=== PATIENT | male | born 1960 | race African-American/Black ===

== ENCOUNTER 2020-10-04 11:11 | Inpatient (IN) | payer MEDICARE, OTHER ==
[2020-10-04 11:47] VITALS: BMI 26.7
[2020-10-04] MEDS ORDERED: MAGNESIUM CITRATE 300 ML BOTTLE PO PRN (12:38)
[2020-10-04] MEDS ORDERED: MENTHOL/PHENOL 1 EACH UD MM PRN (12:38)
[2020-10-04] MEDS ORDERED: ONDANSETRON *ODT* 4 MG TABLET SL PRN (12:38)
[2020-10-04] MEDS ORDERED: BISMUTH SUBSALICYLATE 524 MG/30 ML UD PO PRN (12:38)
[2020-10-04] MEDS ORDERED: MAGNESIUM HYDROX 2400MG/30ML ORAL SUSPENSION 30 ML CUP PO PRN (12:38)
[2020-10-04] MEDS ORDERED: MAG HYDROX/AL HYDROX/SIMETH 30 ML UNIT-DOSE CUP PO PRN (12:38)
[2020-10-04] MEDS ORDERED: METHOCARBAMOL 500 MG TABLET PO PRN (12:38)
[2020-10-04] MEDS ORDERED: chlordiazePOXIDE HCL 25 MG CAPSULE PO PRN (12:38)
[2020-10-04] MEDS ORDERED: NICOTINE POLACRILEX 2 MG GUM BUC PRN (12:38)
[2020-10-04] MEDS ORDERED: ACETAMINOPHEN 325 MG TABLET (FP) PO PRN ×2 (12:38)
[2020-10-04] MEDS ORDERED: INSULIN (NOVOLOG) ASPART 100 UNITS/ML 10ML VIAL ONE ×3 (12:54→18:19)
[2020-10-04] MEDS ORDERED: INSULIN (NOVOLOG) ASPART 100 UNITS/ML 10ML VIAL SQ ONE (13:00)
[2020-10-04 14:32] LABS: ALBUMIN 3.4 g/dl (3.4-5.0); CALCIUM 9.1 mg/dL (8.5-10.1)
[2020-10-04 14:35] LABS: CREATININE 1.4 mg/dL (0.55-1.3)
[2020-10-04 14:36] LABS: HEMATOCRIT 37.9 % (35.4-49); HEMOGLOBIN 12.6 GM/dL (11.7-16.9); MCH 30.3 pg (25.7-33.7); MCHC 33.2 g/dl (32.0-35.9); MEAN CELL VOLUME 91.1 fl (80-96); MEAN PLT VOLUME 9.4 fl (7.5-11.1); PLATELET COUNT 151 K/MM3 (134-434); RBC 4.16 M/mm3 (4.00-5.60); WHITE BLOOD COUNT 4.3 K/mm3 (4.0-10.0)
[2020-10-04 14:37] LABS: BILIRUBIN,TOTAL 0.4 mg/dL (0.2-1); TOT PROT 7.1 g/dl (6.4-8.2)
[2020-10-04] MEDS: IBUPROFEN 400 MG TABLET (FP) PO PRN (15:20)
[2020-10-04] MEDS: hydrOXYzine PAMOATE 25 MG CAPSULE (FP) PO SCH ×3 (15:20→23:06)
[2020-10-04] MEDS: PRENATAL VITAMINS W/ FOLIC ACID TABLET (FP) PO SCH (15:22)
[2020-10-04] MEDS: NICOTINE 21 MG/24 HOURS TOPICAL PATCH TD SCH (15:22)
[2020-10-04] MEDS: metFORMIN HCL 500 MG TABLET (FP) PO SCH (18:22)
[2020-10-04] MEDS: chlordiazePOXIDE HCL 25 MG CAPSULE PO SCH ×2 (18:22→23:05)
[2020-10-04] MEDS: INSULIN SLIDING SCALE (NOVOLOG) 1 VIAL SQ SCH ×2 (18:23→23:06)
[2020-10-04] MEDS ORDERED: MELATONIN 5 MG TABLETS PO SCH (22:00)
[2020-10-04] MEDS: PRAZOSIN HCL 1 MG CAPSULE PO SCH (23:05)
[2020-10-04] MEDS: THIAMINE HCL 100 MG TABLET (FP) PO SCH (23:05)
[2020-10-04] MEDS: INSULIN (LEVEMIR) 100 UNITS/ML UNITS SQ SCH (23:06)
[2020-10-04] MEDS: MELATONIN 5 MG TABLETS PO PRN (23:09)
[2020-10-05] MEDS: hydrOXYzine PAMOATE 25 MG CAPSULE (FP) PO SCH ×5 (07:12→23:04)
[2020-10-05] MEDS: metFORMIN HCL 500 MG TABLET (FP) PO SCH ×2 (07:17→17:30)
[2020-10-05] MEDS: chlordiazePOXIDE HCL 25 MG CAPSULE PO SCH ×4 (07:17→23:03)
[2020-10-05] MEDS: INSULIN SLIDING SCALE (NOVOLOG) 1 VIAL SQ SCH ×4 (08:08→21:57)
[2020-10-05] MEDS: PRENATAL VITAMINS W/ FOLIC ACID TABLET (FP) PO SCH (10:45)
[2020-10-05] MEDS: SERTRALINE HCL 50 MG TABLET (FP) PO SCH (10:46)
[2020-10-05] MEDS: NICOTINE 21 MG/24 HOURS TOPICAL PATCH TD SCH (10:46)
[2020-10-05] MEDS ORDERED: chlordiazePOXIDE HCL 25 MG CAPSULE PO PRN (12:32)
[2020-10-05] MEDS: BICTEGRAV/EMTRICIT/TENOFOV (BIKTARVY) 50-200-25 MG TABLET PO SCH (12:47)
[2020-10-05] MEDS: IBUPROFEN 400 MG TABLET (FP) PO PRN (14:30)
[2020-10-05] MEDS: GABAPENTIN 100 MG CAPSULE PO SCH ×2 (14:32→23:04)
[2020-10-05] MEDS: THIAMINE HCL 100 MG TABLET (FP) PO SCH (23:04)
[2020-10-05] MEDS: PRAZOSIN HCL 1 MG CAPSULE PO SCH (23:04)
[2020-10-05] MEDS: INSULIN (LEVEMIR) 100 UNITS/ML UNITS SQ SCH (23:37)
[2020-10-06] MEDS: metFORMIN HCL 500 MG TABLET (FP) PO SCH ×2 (06:08→17:23)
[2020-10-06] MEDS: GABAPENTIN 100 MG CAPSULE PO SCH ×3 (06:08→22:38)
[2020-10-06] MEDS: hydrOXYzine PAMOATE 25 MG CAPSULE (FP) PO SCH ×5 (06:08→22:38)
[2020-10-06] MEDS: chlordiazePOXIDE HCL 25 MG CAPSULE PO SCH ×4 (06:08→22:38)
[2020-10-06] MEDS ORDERED: INSULIN (NOVOLOG) ASPART 100 UNITS/ML 10ML VIAL ONE (06:21)
[2020-10-06] MEDS: INSULIN SLIDING SCALE (NOVOLOG) 1 VIAL SQ SCH ×4 (06:44→22:38)
[2020-10-06] MEDS: PRENATAL VITAMINS W/ FOLIC ACID TABLET (FP) PO SCH (11:06)
[2020-10-06] MEDS: BICTEGRAV/EMTRICIT/TENOFOV (BIKTARVY) 50-200-25 MG TABLET PO SCH (11:06)
[2020-10-06] MEDS: NICOTINE 21 MG/24 HOURS TOPICAL PATCH TD SCH (11:09)
[2020-10-06] MEDS: SERTRALINE HCL 50 MG TABLET (FP) PO SCH (11:09)
[2020-10-06] MEDS ORDERED: PATIENT'S OWN MEDICATION (NON-FORMULARY) (Dulaglutide [Trulicity] 0.75 MG/0.5 ML Pen.Injct SQ SCH (13:45)
[2020-10-06] MEDS: THIAMINE HCL 100 MG TABLET (FP) PO SCH (22:38)
[2020-10-06] MEDS: PRAZOSIN HCL 1 MG CAPSULE PO SCH (22:39)
[2020-10-06] MEDS: INSULIN (LEVEMIR) 100 UNITS/ML UNITS SQ SCH (22:40)
[2020-10-07] MEDS ORDERED: chlordiazePOXIDE HCL 10 MG CAPSULE PO PRN ×2
[2020-10-07] MEDS ORDERED: chlordiazePOXIDE HCL 10 MG CAPSULE PO SCH (05:00)
[2020-10-07] MEDS: GABAPENTIN 100 MG CAPSULE PO SCH ×3 (05:47→23:12)
[2020-10-07] MEDS: hydrOXYzine PAMOATE 25 MG CAPSULE (FP) PO SCH ×5 (05:47→23:27)
[2020-10-07] MEDS: chlordiazePOXIDE HCL 10 MG CAPSULE PO SCH ×4 (05:48→23:12)
[2020-10-07] MEDS: metFORMIN HCL 500 MG TABLET (FP) PO SCH ×2 (06:41→18:19)
[2020-10-07] MEDS: PRENATAL VITAMINS W/ FOLIC ACID TABLET (FP) PO SCH (11:27)
[2020-10-07] MEDS: SERTRALINE HCL 50 MG TABLET (FP) PO SCH (11:27)
[2020-10-07] MEDS: NICOTINE 21 MG/24 HOURS TOPICAL PATCH TD SCH (11:28)
[2020-10-07] MEDS: BICTEGRAV/EMTRICIT/TENOFOV (BIKTARVY) 50-200-25 MG TABLET PO SCH (11:28)
[2020-10-07] MEDS: INSULIN SLIDING SCALE (NOVOLOG) 1 VIAL SQ SCH ×3 (11:35→23:27)
[2020-10-07] MEDS: THIAMINE HCL 100 MG TABLET (FP) PO SCH (23:12)
[2020-10-07] MEDS: INSULIN (LEVEMIR) 100 UNITS/ML UNITS SQ SCH (23:25)
[2020-10-07] MEDS: PRAZOSIN HCL 1 MG CAPSULE PO SCH (23:26)
[2020-10-08] MEDS ORDERED: chlordiazePOXIDE HCL 10 MG CAPSULE PO SCH (05:00)
[2020-10-08] MEDS: GABAPENTIN 100 MG CAPSULE PO SCH ×4 (05:54→23:01)
[2020-10-08] MEDS: hydrOXYzine PAMOATE 25 MG CAPSULE (FP) PO SCH ×5 (05:54→23:00)
[2020-10-08] MEDS: chlordiazePOXIDE HCL 10 MG CAPSULE PO SCH ×2 (05:54→18:34)
[2020-10-08] MEDS: INSULIN SLIDING SCALE (NOVOLOG) 1 VIAL SQ SCH ×4 (06:31→23:50)
[2020-10-08] MEDS: metFORMIN HCL 500 MG TABLET (FP) PO SCH ×2 (06:31→16:34)
[2020-10-08] MEDS: BICTEGRAV/EMTRICIT/TENOFOV (BIKTARVY) 50-200-25 MG TABLET PO SCH (08:21)
[2020-10-08] MEDS: SERTRALINE HCL 50 MG TABLET (FP) PO SCH (10:56)
[2020-10-08] MEDS: PRENATAL VITAMINS W/ FOLIC ACID TABLET (FP) PO SCH (10:56)
[2020-10-08] MEDS: NICOTINE 21 MG/24 HOURS TOPICAL PATCH TD SCH (10:57)
[2020-10-08] MEDS: INSULIN (LEVEMIR) 100 UNITS/ML UNITS SQ SCH (22:59)
[2020-10-08] MEDS: THIAMINE HCL 100 MG TABLET (FP) PO SCH (23:00)
[2020-10-08] MEDS: MELATONIN 5 MG TABLETS PO PRN (23:01)
[2020-10-08] MEDS: PRAZOSIN HCL 1 MG CAPSULE PO SCH (23:50)
[2020-10-09] MEDS ORDERED: chlordiazePOXIDE HCL 10 MG CAPSULE PO ONE ×2 (05:00)
[2020-10-09] MEDS: hydrOXYzine PAMOATE 25 MG CAPSULE (FP) PO SCH ×2 (05:54→10:25)
[2020-10-09] MEDS: GABAPENTIN 100 MG CAPSULE PO SCH (05:54)
[2020-10-09] MEDS: metFORMIN HCL 500 MG TABLET (FP) PO SCH (06:01)
[2020-10-09] MEDS: INSULIN SLIDING SCALE (NOVOLOG) 1 VIAL SQ SCH ×2 (06:12→11:53)
[2020-10-09 08:07] VITALS: TEMP 97.1
[2020-10-09] MEDS: NICOTINE 21 MG/24 HOURS TOPICAL PATCH TD SCH (10:25)
[2020-10-09] MEDS: SERTRALINE HCL 50 MG TABLET (FP) PO SCH (10:25)
[2020-10-09] MEDS: PRENATAL VITAMINS W/ FOLIC ACID TABLET (FP) PO SCH (10:25)
[2020-10-09] MEDS: BICTEGRAV/EMTRICIT/TENOFOV (BIKTARVY) 50-200-25 MG TABLET PO SCH (10:25)
[2020-10-09 10:42] VITALS: BP 127/73; PULSE 79
== END 2020-10-09 12:40 | disposition other institution (70) | DRG 897 ==
LOC: YASAS 11:11 → Y3N 12:57 → Y6N 13:30
PROVIDERS: ADMIT Allergy & Immunology; ATTEND Allergy & Immunology
PROC: HZ2ZZZZ Detoxification Services for Substance Abuse Treatment (ICD-10-PCS; principal; 2020-10-04)
DX: F10.230 Alcohol dependence with withdrawal, uncomplicated (principal); F14.20 Cocaine dependence, uncomplicated; F19.282 Other psychoactive substance dependence with psychoactive substance-induced sleep disorder; F12.20 Cannabis dependence, uncomplicated; F17.210 Nicotine dependence, cigarettes, uncomplicated; F32.9 Major depressive disorder, single episode, unspecified; F43.10 Post-traumatic stress disorder, unspecified; F19.24 Other psychoactive substance dependence with psychoactive substance-induced mood disorder; Z21 Asymptomatic human immunodeficiency virus [HIV] infection status; E11.42 Type 2 diabetes mellitus with diabetic polyneuropathy; Z79.4 Long term (current) use of insulin; Z96.641 Presence of right artificial hip joint; Z86.19 Personal history of other infectious and parasitic diseases; Z91.410 Personal history of adult physical and sexual abuse; Z91.013 Allergy to seafood
CPT/HCPCS: 36415; 80053; 82962; 85027; 86593; 86780; C9803; U0003

== ENCOUNTER 2020-10-09 12:51 | Inpatient (IN) | payer MEDICARE, OTHER ==
[2020-10-09] MEDS ORDERED: hydrOXYzine PAMOATE 25 MG CAPSULE (FP) PO PRN (13:48)
[2020-10-09] MEDS ORDERED: ACETAMINOPHEN 325 MG TABLET (FP) PO PRN (13:48)
[2020-10-09] MEDS ORDERED: MAG HYDROX/AL HYDROX/SIMETH 30 ML UNIT-DOSE CUP PO PRN (13:48)
[2020-10-09] MEDS ORDERED: MAGNESIUM HYDROX 2400MG/30ML ORAL SUSPENSION 30 ML CUP PO PRN (13:48)
[2020-10-09] MEDS ORDERED: LOPERAMIDE HCL 2 MG CAPSULE PO PRN (13:48)
[2020-10-09] MEDS ORDERED: P-EPHED 60MG/TRIPROLIDI 2.5MG TABLET PO PRN (13:48)
[2020-10-09] MEDS ORDERED: MENTHOL/PHENOL 1 EACH UD MM PRN (13:48)
[2020-10-09] MEDS ORDERED: IBUPROFEN 400 MG TABLET (FP) PO PRN (13:48)
[2020-10-09] MEDS ORDERED: guaiFENesin 200 MG/10 ML 10 ML UNIT-DOSE CUPS PO PRN (13:48)
[2020-10-09] MEDS ORDERED: MAGNESIUM CITRATE 300 ML BOTTLE PO PRN (13:48)
[2020-10-09] MEDS ORDERED: NICOTINE POLACRILEX 2 MG GUM BUC PRN (13:48)
[2020-10-09] MEDS ORDERED: PATIENT'S OWN MEDICATION (NON-FORMULARY) (Dulaglutide [Trulicity] 0.75 MG/0.5 ML Pen.Injct SQ SCH (14:00)
[2020-10-09] MEDS: GABAPENTIN 100 MG CAPSULE PO SCH ×2 (14:39→21:06)
[2020-10-09] MEDS: metFORMIN HCL 500 MG TABLET (FP) PO SCH (17:17)
[2020-10-09] MEDS: INSULIN SLIDING SCALE (NOVOLOG) 1 VIAL SQ SCH ×2 (17:18→21:06)
[2020-10-09] MEDS ORDERED: AMMONIUM LACTATE 12% LOTION 225 GM BOTTLE TP PRN (18:45)
[2020-10-09] MEDS: THIAMINE HCL 100 MG TABLET (FP) PO SCH (21:05)
[2020-10-09] MEDS: INSULIN (LEVEMIR) 100 UNITS/ML UNITS SQ SCH (21:05)
[2020-10-09] MEDS: MELATONIN 5 MG TABLETS PO SCH (21:05)
[2020-10-10] MEDS: GABAPENTIN 100 MG CAPSULE PO SCH ×3 (05:54→21:25)
[2020-10-10] MEDS: INSULIN SLIDING SCALE (NOVOLOG) 1 VIAL SQ SCH ×4 (06:10→21:26)
[2020-10-10] MEDS: metFORMIN HCL 500 MG TABLET (FP) PO SCH ×2 (06:10→16:22)
[2020-10-10] MEDS: PRENATAL VITAMINS W/ FOLIC ACID TABLET (FP) PO SCH (10:05)
[2020-10-10] MEDS: NICOTINE 21 MG/24 HOURS TOPICAL PATCH TD SCH (10:05)
[2020-10-10] MEDS: BICTEGRAV/EMTRICIT/TENOFOV (BIKTARVY) 50-200-25 MG TABLET PO SCH (10:05)
[2020-10-10] MEDS: THIAMINE HCL 100 MG TABLET (FP) PO SCH (21:25)
[2020-10-10] MEDS: MELATONIN 5 MG TABLETS PO SCH (21:25)
[2020-10-10] MEDS: INSULIN (LEVEMIR) 100 UNITS/ML UNITS SQ SCH (21:26)
[2020-10-11] MEDS: GABAPENTIN 100 MG CAPSULE PO SCH ×3 (06:53→21:16)
[2020-10-11] MEDS: metFORMIN HCL 500 MG TABLET (FP) PO SCH ×2 (06:53→17:20)
[2020-10-11] MEDS: INSULIN SLIDING SCALE (NOVOLOG) 1 VIAL SQ SCH ×4 (06:53→21:17)
[2020-10-11] MEDS: PRENATAL VITAMINS W/ FOLIC ACID TABLET (FP) PO SCH (10:00)
[2020-10-11] MEDS: NICOTINE 21 MG/24 HOURS TOPICAL PATCH TD SCH (10:00)
[2020-10-11] MEDS: BICTEGRAV/EMTRICIT/TENOFOV (BIKTARVY) 50-200-25 MG TABLET PO SCH (10:00)
[2020-10-11] MEDS: THIAMINE HCL 100 MG TABLET (FP) PO SCH (21:16)
[2020-10-11] MEDS: MELATONIN 5 MG TABLETS PO SCH (21:16)
[2020-10-11] MEDS: INSULIN (LEVEMIR) 100 UNITS/ML UNITS SQ SCH (21:17)
[2020-10-12] MEDS: metFORMIN HCL 500 MG TABLET (FP) PO SCH ×2 (06:08→17:18)
[2020-10-12] MEDS: GABAPENTIN 100 MG CAPSULE PO SCH ×3 (06:08→21:23)
[2020-10-12] MEDS: INSULIN SLIDING SCALE (NOVOLOG) 1 VIAL SQ SCH ×4 (06:10→21:23)
[2020-10-12] MEDS: PRENATAL VITAMINS W/ FOLIC ACID TABLET (FP) PO SCH (09:35)
[2020-10-12] MEDS ORDERED: PT OWN MED DRAWER 7, Y5N ONE (09:36)
[2020-10-12] MEDS: BICTEGRAV/EMTRICIT/TENOFOV (BIKTARVY) 50-200-25 MG TABLET PO SCH (09:37)
[2020-10-12] MEDS: NICOTINE 21 MG/24 HOURS TOPICAL PATCH TD SCH (09:37)
[2020-10-12] MEDS: BACITRACIN 0.9 GM PACKET TP SCH ×2 (11:04→21:23)
[2020-10-12] MEDS ORDERED: MASKS NR ONE ×2 (15:11→17:19)
[2020-10-12] MEDS: THIAMINE HCL 100 MG TABLET (FP) PO SCH (21:22)
[2020-10-12] MEDS: MELATONIN 5 MG TABLETS PO SCH (21:22)
[2020-10-12] MEDS: INSULIN (LEVEMIR) 100 UNITS/ML UNITS SQ SCH (21:25)
[2020-10-13] MEDS: GABAPENTIN 100 MG CAPSULE PO SCH ×3 (06:25→21:07)
[2020-10-13] MEDS: INSULIN SLIDING SCALE (NOVOLOG) 1 VIAL SQ SCH ×4 (06:27→21:09)
[2020-10-13] MEDS: metFORMIN HCL 500 MG TABLET (FP) PO SCH ×2 (06:27→17:11)
[2020-10-13] MEDS: PRENATAL VITAMINS W/ FOLIC ACID TABLET (FP) PO SCH (09:58)
[2020-10-13] MEDS: BACITRACIN 0.9 GM PACKET TP SCH ×2 (09:58→21:09)
[2020-10-13] MEDS: BICTEGRAV/EMTRICIT/TENOFOV (BIKTARVY) 50-200-25 MG TABLET PO SCH (09:59)
[2020-10-13] MEDS: NICOTINE 21 MG/24 HOURS TOPICAL PATCH TD SCH (10:00)
[2020-10-13] MEDS ORDERED: PATIENT'S OWN MEDICATION (NON-FORMULARY) (Dulaglutide [Trulicity] 0.75 MG) SQ SCH (10:00)
[2020-10-13] MEDS ORDERED: MASKS NR ONE (20:33)
[2020-10-13] MEDS: MELATONIN 5 MG TABLETS PO SCH (21:06)
[2020-10-13] MEDS: THIAMINE HCL 100 MG TABLET (FP) PO SCH (21:06)
[2020-10-13] MEDS: INSULIN (LEVEMIR) 100 UNITS/ML UNITS SQ SCH (21:09)
[2020-10-14] MEDS: GABAPENTIN 100 MG CAPSULE PO SCH ×3 (06:26→21:40)
[2020-10-14] MEDS: INSULIN SLIDING SCALE (NOVOLOG) 1 VIAL SQ SCH ×4 (06:26→21:40)
[2020-10-14] MEDS: metFORMIN HCL 500 MG TABLET (FP) PO SCH ×2 (07:53→17:09)
[2020-10-14] MEDS: BACITRACIN 0.9 GM PACKET TP SCH ×2 (09:57→21:39)
[2020-10-14] MEDS: PRENATAL VITAMINS W/ FOLIC ACID TABLET (FP) PO SCH (09:57)
[2020-10-14] MEDS: NICOTINE 21 MG/24 HOURS TOPICAL PATCH TD SCH (09:57)
[2020-10-14] MEDS: BICTEGRAV/EMTRICIT/TENOFOV (BIKTARVY) 50-200-25 MG TABLET PO SCH (09:57)
[2020-10-14] MEDS: INSULIN (LEVEMIR) 100 UNITS/ML UNITS SQ SCH (21:40)
[2020-10-14] MEDS: THIAMINE HCL 100 MG TABLET (FP) PO SCH (21:40)
[2020-10-14] MEDS: MELATONIN 5 MG TABLETS PO SCH (21:40)
[2020-10-15] MEDS ORDERED: MASKS NR ONE ×3 (05:51→20:07)
[2020-10-15] MEDS: GABAPENTIN 100 MG CAPSULE PO SCH ×3 (06:10→21:11)
[2020-10-15] MEDS: metFORMIN HCL 500 MG TABLET (FP) PO SCH ×2 (06:10→16:32)
[2020-10-15] MEDS: INSULIN SLIDING SCALE (NOVOLOG) 1 VIAL SQ SCH ×4 (06:10→21:14)
[2020-10-15] MEDS: BACITRACIN 0.9 GM PACKET TP SCH ×2 (10:34→21:13)
[2020-10-15] MEDS: BICTEGRAV/EMTRICIT/TENOFOV (BIKTARVY) 50-200-25 MG TABLET PO SCH (10:34)
[2020-10-15] MEDS: PRENATAL VITAMINS W/ FOLIC ACID TABLET (FP) PO SCH (10:34)
[2020-10-15] MEDS: NICOTINE 21 MG/24 HOURS TOPICAL PATCH TD SCH (10:36)
[2020-10-15] MEDS: MELATONIN 5 MG TABLETS PO SCH (21:11)
[2020-10-15] MEDS: THIAMINE HCL 100 MG TABLET (FP) PO SCH (21:11)
[2020-10-15] MEDS: INSULIN (LEVEMIR) 100 UNITS/ML UNITS SQ SCH (21:13)
[2020-10-16] MEDS ORDERED: MASKS NR ONE (06:00)
[2020-10-16] MEDS ORDERED: TRIMETHOBENZAMIDE HCL 200MG/2ML INJ IM ONE (06:21)
[2020-10-16] MEDS: INSULIN SLIDING SCALE (NOVOLOG) 1 VIAL SQ SCH ×3 (06:43→16:25)
[2020-10-16] MEDS: GABAPENTIN 100 MG CAPSULE PO SCH ×2 (07:45→14:36)
[2020-10-16] MEDS: metFORMIN HCL 500 MG TABLET (FP) PO SCH ×2 (08:13→16:24)
[2020-10-16] MEDS: PRENATAL VITAMINS W/ FOLIC ACID TABLET (FP) PO SCH (09:56)
[2020-10-16] MEDS: NICOTINE 21 MG/24 HOURS TOPICAL PATCH TD SCH (09:56)
[2020-10-16] MEDS: BACITRACIN 0.9 GM PACKET TP SCH (09:56)
[2020-10-16] MEDS: BICTEGRAV/EMTRICIT/TENOFOV (BIKTARVY) 50-200-25 MG TABLET PO SCH (09:56)
[2020-10-16 19:59] VITALS: BP 120/74; PULSE 99
[2020-10-16 20:27] VITALS: TEMP 97.7
[2020-10-17] MEDS: MELATONIN 5 MG TABLETS PO SCH (00:02)
[2020-10-17] MEDS: INSULIN (LEVEMIR) 100 UNITS/ML UNITS SQ SCH (00:02)
[2020-10-17] MEDS: GABAPENTIN 100 MG CAPSULE PO SCH (00:02)
[2020-10-17] MEDS: BACITRACIN 0.9 GM PACKET TP SCH (00:02)
[2020-10-17] MEDS: THIAMINE HCL 100 MG TABLET (FP) PO SCH (00:03)
[2020-10-17] MEDS: INSULIN SLIDING SCALE (NOVOLOG) 1 VIAL SQ SCH (00:03)
== END 2020-10-17 01:25 | disposition left against medical advice (07) | DRG 894 ==
LOC: YASAS 12:51 → Y3W 12:52
PROVIDERS: ADMIT Allergy & Immunology; ATTEND Allergy & Immunology
PROC: HZ42ZZZ Group Counseling for Substance Abuse Treatment, Cognitive-Behavioral (ICD-10-PCS; principal; 2020-10-09)
DX: F10.20 Alcohol dependence, uncomplicated (principal); F14.20 Cocaine dependence, uncomplicated; F12.20 Cannabis dependence, uncomplicated; F17.210 Nicotine dependence, cigarettes, uncomplicated; F41.8 Other specified anxiety disorders; F32.9 Major depressive disorder, single episode, unspecified; Z21 Asymptomatic human immunodeficiency virus [HIV] infection status; E11.42 Type 2 diabetes mellitus with diabetic polyneuropathy; Z79.4 Long term (current) use of insulin; R10.30 Lower abdominal pain, unspecified; R11.2 Nausea with vomiting, unspecified; R19.7 Diarrhea, unspecified; Z91.013 Allergy to seafood; Z91.5 Personal history of self-harm
CPT/HCPCS: 82962; C9803; U0003

== ENCOUNTER 2020-10-16 20:41 | Emergency (ER) | payer MEDICARE, OTHER ==
[2020-10-16 20:53] VITALS: BP 126/76; PULSE 98; TEMP 98.6; BMI 27.0
[2020-10-16] MEDS ORDERED: SODIUM CHLORIDE 0.9% 500 ML INFUS.BAG IV ONE ×2 (21:31→23:05)
[2020-10-16] MEDS ORDERED: ONDANSETRON 4 MG/2 ML VIAL IVPUSH ONE (21:31)
[2020-10-16] MEDS ORDERED: ACETAMINOPHEN 1000 MG/100 ML VIAL (NON FORMULARY) IVPB ONE (21:31)
[2020-10-16] MEDS ORDERED: FAMOTIDINE 20 MG/50 ML IVPB 20 MG/50 ML MG IVPB ONE ×2 (21:33→22:24)
[2020-10-16] MEDS ORDERED: ACETAMINOPHEN INJECTION 100 ML IVPB ONE (22:24)
[2020-10-16] MEDS ORDERED: ONDANSETRON 4 MG/2 ML VIAL ONE (22:24)
[2020-10-16 22:29] LABS: BASO % 0.6 % (0-2.0); EOS % 2.4 % (0-4.5); HEMATOCRIT 38.5 % (35.4-49); HEMOGLOBIN 12.8 GM/dL (11.7-16.9); LYMPH % 34.5 % (8-40); MCH 29.9 pg (25.7-33.7); MCHC 33.3 g/dl (32.0-35.9); MEAN CELL VOLUME 89.8 fl (80-96); MEAN PLT VOLUME 9.6 fl (7.5-11.1); MONO % 6.7 % (3.8-10.2); NEUT % 55.8 % (42.8-82.8); PLATELET COUNT 106 K/MM3 (134-434); RBC 4.28 M/mm3 (4.00-5.60); RDW 14.8 % (11.9-15.9); WHITE BLOOD COUNT 6.7 K/mm3 (4.0-10.0)
[2020-10-16 22:40] LABS: INR 1.02 (0.83-1.09); PROTHROMBIN TIME (PATIENT) 12.3 SEC (9.7-13.0)
[2020-10-16 22:48] LABS: POTASSIUM 4.3 mmol/L (3.5-5.1)
[2020-10-16 22:49] LABS: CALCIUM 9.3 mg/dL (8.5-10.1)
[2020-10-16 22:50] LABS: ALBUMIN 3.7 g/dl (3.4-5.0); BLOOD UREA NITROGEN 16.2 mg/dL (7-18)
[2020-10-16 22:51] LABS: EPI CELLS 13 /uL (0-25.1); HYALINE CASTS 1 /uL (0-3.1); URINE APPEARANCE CLEAR; URINE BACTERIA 156 /uL (0-1359); URINE BILIRUBIN NEGATIVE (NEGATIVE); URINE COLOR YELLOW; URINE GLUCOSE (UA) NEGATIVE (NEGATIVE); URINE KETONE NEGATIVE (NEGATIVE); URINE LEUK ESTERASE TRACE (NEGATIVE); URINE NITRITE NEGATIVE (NEGATIVE); URINE PROTEIN TRACE (NEGATIVE); URINE RBC 25 /uL (0-23.9); URINE WBC 39 /uL (0-25.8)
[2020-10-16 22:53] LABS: CREATININE 1.5 mg/dL (0.55-1.3)
[2020-10-16 22:55] LABS: BILIRUBIN,TOTAL 0.3 mg/dL (0.2-1); TOT PROT 7.3 g/dl (6.4-8.2)
== END 2020-10-17 01:27 | disposition left against medical advice (07) ==
LOC: JER 20:41
PROC: 3E0333Z Introduction of Anti-inflammatory into Peripheral Vein, Percutaneous Approach (ICD-10-PCS; principal; 2020-10-16)
PROC: 3E033GC Introduction of Other Therapeutic Substance into Peripheral Vein, Percutaneous Approach (ICD-10-PCS; 2020-10-16)
PROC: 3E033GC Introduction of Other Therapeutic Substance into Peripheral Vein, Percutaneous Approach (ICD-10-PCS; 2020-10-16)
DX: R11.2 Nausea with vomiting, unspecified (principal); R19.7 Diarrhea, unspecified
CPT/HCPCS: 36415; 74177-TC; 80053; 81003; 83605; 83690; 85025; 85610; 93005; 93010; 96374; 96375; 99285-25; J0131

== ENCOUNTER 2024-07-21 15:16 | Inpatient (IN) | payer OTHER ==
[2024-07-21 15:53] VITALS: BMI 22.1
[2024-07-21] MEDS ORDERED: LOPERAMIDE HCL 2 MG CAPSULE PO PRN (16:47)
[2024-07-21] MEDS ORDERED: BISMUTH SUBSALICYLATE 524 MG/30 ML PO PRN (16:47)
[2024-07-21] MEDS ORDERED: guaiFENesin 600 MG TABLET.ER (FP) PO PRN (16:47)
[2024-07-21] MEDS ORDERED: NALOXONE (NARCAN) HCL 4 MG/0.1 ML SPRAY NS PRN (16:47)
[2024-07-21] MEDS ORDERED: ACETAMINOPHEN 325 MG TABLET (FP) PO PRN (16:47)
[2024-07-21] MEDS ORDERED: DICYCLOMINE HCL 10 MG CAPSULE PO PRN (16:47)
[2024-07-21] MEDS ORDERED: POLYETHYLENE GLYCOL (HEALTHYLAX) 3350 17 GM PACKET PO PRN (16:47)
[2024-07-21] MEDS ORDERED: ONDANSETRON *ODT* 4 MG TABLET SL PRN (16:47)
[2024-07-21] MEDS ORDERED: IBUPROFEN 400 MG TABLET (FP) PO PRN (16:47)
[2024-07-21] MEDS ORDERED: BENZONATATE 200 MG CAPSULE PO PRN (16:47)
[2024-07-21] MEDS ORDERED: BENZOCAINE/MENTHOL (CHLORASEPTIC ) LOZENGE MM PRN (16:47)
[2024-07-21] MEDS ORDERED: MAGNESIUM HYDROX 2400MG/30ML ORAL SUSPENSION 30 ML CUP PO PRN (16:47)
[2024-07-21] MEDS ORDERED: NICOTINE POLACRILEX 2 MG GUM BUC PRN (16:47)
[2024-07-21] MEDS ORDERED: MAG HYDROX/AL HYDROX/SIMETH 30 ML UNIT-DOSE CUP PO PRN (16:47)
[2024-07-21] MEDS ORDERED: BICTEGRAV/EMTRICIT/TENOFOV (BIKTARVY) 50-200-25 MG TABLET PO SCH ×2 (17:00→18:30)
[2024-07-21] MEDS: METHOCARBAMOL 500 MG TABLET PO PRN (20:05)
[2024-07-21] MEDS: IBUPROFEN 600 MG TABLET (FP) PO PRN (20:05)
[2024-07-21] MEDS: hydrOXYzine PAMOATE 25 MG CAPSULE (FP) PO PRN (20:05)
[2024-07-21] MEDS: BICTEGRAV/EMTRICIT/TENOFOV (BIKTARVY) 50-200-25 MG TABLET PO SCH (20:31)
[2024-07-21] MEDS ORDERED: metFORMIN HCL 500 MG TABLET (FP) PO SCH (22:00)
[2024-07-21] MEDS: THIAMINE 100 MG TABLET PO SCH (22:23)
[2024-07-21] MEDS: GABAPENTIN 400 MG CAPSULE PO SCH (22:23)
[2024-07-21] MEDS: MELATONIN 5 MG TABLETS PO SCH (22:23)
[2024-07-21] MEDS: BUPRENORPHINE/NALOXONE 4 MG/1 MG FILM PACKET SL SCH (22:31)
[2024-07-21] MEDS: INSULIN (LEVEMIR) 100 UNITS/ML UNITS SQ SCH (22:32)
[2024-07-22] MEDS: metFORMIN HCL 500 MG TABLET (FP) PO SCH (06:07)
[2024-07-22] MEDS: INSULIN ASPART SLIDING SCALE (NOVOLOG) 1 VIAL SQ SCH (06:27)
[2024-07-22] MEDS: PRENATAL VITAMINS W/ FOLIC ACID TABLET (FP) PO SCH (10:38)
[2024-07-22 11:27] LABS: CHLORIDE 112 mmol/L (98-107); POTASSIUM 4.2 mmol/L (3.5-5.1); SODIUM 143 mmol/L (136-145)
[2024-07-22 11:30] LABS: HEMATOCRIT 28.1 % (35.4-49); HEMOGLOBIN 9.3 GM/dL (11.7-16.9); MCH 27.3 pg (25.7-33.7); MCHC 32.9 g/dl (32.0-35.9); MEAN PLT VOLUME 8.5 fl (7.5-11.1); PLATELET COUNT 243 10^3/uL (134-434); RBC 3.39 M/mm3 (4.00-5.60); RDW 17.9 % (11.9-15.9)
[2024-07-22 11:32] LABS: ALBUMIN 2.1 g/dl (3.4-5.0)
[2024-07-22 11:33] LABS: ANION GAP 4 mmol/L (4-13); BLOOD UREA NITROGEN 16.2 mg/dL (7-18); CALCIUM 8.6 mg/dL (8.5-10.1); CO2 27 mmol/L (21-32); GLUCOSE,RANDOM 153 mg/dL (74-106)
[2024-07-22 11:35] LABS: SGPT/ALT 11 U/L (13-61)
[2024-07-22 11:37] LABS: BILIRUBIN,TOTAL 0.3 mg/dL (0.2-1); CREATININE 1.6 mg/dL (0.55-1.3); SGOT/AST 11 U/L (15-37); TOT PROT 5.8 g/dl (6.4-8.2)
[2024-07-22 11:38] LABS: ALK PHOS 75 U/L (45-117)
[2024-07-23] MEDS: NALOXONE (NYS OPIOID OVERDOSE PROGRAM) 4 MG/0.1 ML SPRAY NS SCH (12:01)
[2024-07-23 13:15] VITALS: BP 137/65; PULSE 86; RESP 18; TEMP 98
== END 2024-07-23 15:27 | disposition other institution (70) | DRG 897 ==
LOC: YASAS 15:16 → Y3N 19:25
PROVIDERS: ADMIT Allergy & Immunology; ATTEND Allergy & Immunology
PROC: HZ2ZZZZ Detoxification Services for Substance Abuse Treatment (ICD-10-PCS; principal; 2024-07-21)
DX: F11.20 Opioid dependence, uncomplicated (principal); F10.20 Alcohol dependence, uncomplicated; F14.10 Cocaine abuse, uncomplicated; F12.20 Cannabis dependence, uncomplicated; F17.210 Nicotine dependence, cigarettes, uncomplicated; F19.24 Other psychoactive substance dependence with psychoactive substance-induced mood disorder; F43.10 Post-traumatic stress disorder, unspecified; F32.A Depression, unspecified; Z21 Asymptomatic human immunodeficiency virus [HIV] infection status; E11.9 Type 2 diabetes mellitus without complications; Z79.4 Long term (current) use of insulin; R26.89 Other abnormalities of gait and mobility; Z99.89 Dependence on other enabling machines and devices; Z86.73 Personal history of transient ischemic attack (TIA), and cerebral infarction without residual deficits; Z86.19 Personal history of other infectious and parasitic diseases; Z79.899 Other long term (current) drug therapy
CPT/HCPCS: 36415; 71046-TC-FY; 80053; 80305; 80307; 82962; 83036; 85027; 86593; 86780; 87811; 93005; 93010

== ENCOUNTER 2024-07-23 15:18 | Inpatient (IN) | payer OTHER ==
[2024-07-23] MEDS ORDERED: guaiFENesin 600 MG TABLET.ER (FP) PO PRN (18:21)
[2024-07-23] MEDS ORDERED: ACETAMINOPHEN 325 MG TABLET (FP) PO PRN (18:21)
[2024-07-23] MEDS ORDERED: BENZONATATE 200 MG CAPSULE PO PRN (18:21)
[2024-07-23] MEDS ORDERED: MAGNESIUM HYDROX 2400MG/30ML ORAL SUSPENSION 30 ML CUP PO PRN (18:21)
[2024-07-23] MEDS ORDERED: IBUPROFEN 600 MG TABLET (FP) PO PRN (18:21)
[2024-07-23] MEDS ORDERED: LOPERAMIDE HCL 2 MG CAPSULE PO PRN (18:21)
[2024-07-23] MEDS ORDERED: NALOXONE HCL 0.4 MG/ML VIAL IVPUSH PRN (18:21)
[2024-07-23] MEDS ORDERED: IBUPROFEN 400 MG TABLET (FP) PO PRN (18:21)
[2024-07-23] MEDS ORDERED: METHOCARBAMOL 500 MG TABLET PO PRN (18:21)
[2024-07-23] MEDS ORDERED: NALOXONE (NARCAN) HCL 4 MG/0.1 ML SPRAY NS PRN (18:21)
[2024-07-23] MEDS ORDERED: POLYETHYLENE GLYCOL (HEALTHYLAX) 3350 17 GM PACKET PO PRN (18:21)
[2024-07-23] MEDS: INSULIN (LEVEMIR) 100 UNITS/ML UNITS SQ SCH (22:32)
[2024-07-23] MEDS: THIAMINE 100 MG TABLET PO SCH (22:32)
[2024-07-23] MEDS: MELATONIN 5 MG TABLETS PO SCH (22:32)
[2024-07-23] MEDS: GABAPENTIN 400 MG CAPSULE PO SCH (22:32)
[2024-07-24] MEDS: INSULIN ASPART SLIDING SCALE (NOVOLOG) 1 VIAL SQ SCH ×2 (06:19→17:06)
[2024-07-24] MEDS: metFORMIN HCL 500 MG TABLET (FP) PO SCH (06:19)
[2024-07-24] MEDS: BICTEGRAV/EMTRICIT/TENOFOV (BIKTARVY) 50-200-25 MG TABLET PO SCH (09:08)
[2024-07-24] MEDS: PRENATAL VITAMINS W/ FOLIC ACID TABLET (FP) PO SCH (09:08)
[2024-07-24] MEDS: AZITHROMYCIN 250 MG TABLET PO ONE (12:02)
[2024-07-24] MEDS: GABAPENTIN 400 MG CAPSULE PO ONE (20:32)
[2024-07-25] MEDS: AZITHROMYCIN 250 MG TABLET PO SCH (09:02)
[2024-07-26] MEDS ORDERED: INSULIN ASPART SLIDING SCALE (NOVOLOG) 1 VIAL SQ ONE ×2 (16:32→18:00)
[2024-07-27] MEDS: MAG HYDROX/AL HYDROX/SIMETH 30 ML UNIT-DOSE CUP PO PRN (07:29)
[2024-07-27] MEDS: BENZOCAINE/MENTHOL (CHLORASEPTIC ) LOZENGE MM PRN (23:34)
[2024-07-28] MEDS: hydrOXYzine PAMOATE 25 MG CAPSULE (FP) PO PRN (10:22)
[2024-07-28] MEDS: GABAPENTIN 300 MG CAPSULE PO SCH (14:00)
[2024-07-29] MEDS: BISMUTH SUBSALICYLATE 524 MG/30 ML PO PRN (20:59)
[2024-08-01] MEDS: TOLNAFTATE 1% CREAM 15 GM TUBE TP SCH (14:23)
[2024-08-02] MEDS ORDERED: BISMUTH SUBSALICYLATE 262 MG/15 ML BTL PO ONE (15:36)
[2024-08-03 06:40] VITALS: BP 152/72; PULSE 93; RESP 17; TEMP 97.5
[2024-08-03] MEDS: NALOXONE (NYS OPIOID OVERDOSE PROGRAM) 4 MG/0.1 ML SPRAY NS SCH (09:26)
== END 2024-08-03 09:43 | disposition home or self-care (01) | DRG 895 ==
LOC: YASAS 15:18 → Y3NR 15:20 → Y3W 07-25 10:09
PROVIDERS: ADMIT Psychiatry & Neurology Pain Medicine; ATTEND Psychiatry & Neurology Pain Medicine
PROC: HZ42ZZZ Group Counseling for Substance Abuse Treatment, Cognitive-Behavioral (ICD-10-PCS; principal; 2024-07-23)
DX: F10.20 Alcohol dependence, uncomplicated (principal); U07.1 COVID-19; F14.20 Cocaine dependence, uncomplicated; F12.20 Cannabis dependence, uncomplicated; F17.210 Nicotine dependence, cigarettes, uncomplicated; F32.A Depression, unspecified; F41.9 Anxiety disorder, unspecified; Z21 Asymptomatic human immunodeficiency virus [HIV] infection status; K21.9 Gastro-esophageal reflux disease without esophagitis; I69.898 Other sequelae of other cerebrovascular disease; M21.371 Foot drop, right foot; E11.9 Type 2 diabetes mellitus without complications; Z79.4 Long term (current) use of insulin; Z79.84 Long term (current) use of oral hypoglycemic drugs; Z79.899 Other long term (current) drug therapy
CPT/HCPCS: 0241U-QW; 36415; 82962; 86359; 86360; 86803; 87522